=== PATIENT | female | born 1960 | race Caucasian/White ===

== ENCOUNTER 2016-08-04 21:23 | Emergency (ER) | payer BC ==
[2016-08-04 22:19] VITALS: BP 146/72
== END 2016-08-04 22:19 | disposition home or self-care (01) ==
LOC: ED 21:23
DX: H66.92 Otitis media, unspecified, left ear (principal); J02.9 Acute pharyngitis, unspecified; I10 Essential (primary) hypertension; Z88.0 Allergy status to penicillin; Z88.8 Allergy status to other drugs, medicaments and biological substances

== ENCOUNTER 2020-04-20 10:44 | Emergency (ER) | payer MEDICAID, SELFPAY ==
[~2020-04-20] VITALS: Ht 160 cm; Wt 81.6 kg
[2020-04-20 10:45] VITALS: BP 134/72; Ht 160 cm; Wt 81.6 kg
== END 2020-04-20 11:03 | disposition home or self-care (01) ==
LOC: ED 10:44
DX: U07.1 COVID-19 (principal); I10 Essential (primary) hypertension
CPT/HCPCS: U0003